=== PATIENT | female | born 1940 | race Caucasian/White ===

== ENCOUNTER 2019-01-18 18:59 | Emergency (ER) | payer MEDICARE, BC ==
[2019-01-18] MEDS ORDERED: Sodium Chloride 0.9% 10 ML Syringe FLUSH PRN (19:20)
--- NOTE | 2019-01-18 19:35 | EDM.PDOC ---
ED HPI GENERAL MEDICAL PROBLEM - General Stated Complaint: THROWING UP Time Seen by Provider: 01/18/19 18:59 Source of Information: Reports: Patient History Limitations: Reports: No Limitations - History of Present Illness INITIAL COMMENTS - FREE TEXT/NARRATIVE: Pt. states that over the past several days, she has been experiencing painful urination, abdominal cramping, and diarrhea. She states that throughout the day today, she has noticed her bowels are moving less, and she has not been passing gas. Denies any chest pain or shortness of breath. No cough. She states that the dysuria has resolved. Pt. states that her last chemo was on 03/09. Her WBC was 0.8, and she was subsequently given a dose of Neulasta on 01/08. Pt. states that a UA was performed last week which was negative. No antibiotic was started. She states that the dysuria has decreased in severity. She denies any chest pain or shortness of breath. No jaw, arm, neck or back pain. No melena, hematochezia, or hematemesis. She states that she feels quite fatigued. She complains of vomting twice and is currently nauseated. Onset: Today Onset Date: 01/18/19 Location: Reports: Abdomen, Generalized Associated Symptoms: Reports: Nausea/Vomiting Lower Abdomen Pain Score (Numeric/FACES): 2 - Related Data Allergies Allergy/AdvReac Type Severity Reaction Status Date / Time hydroxychloroquine Allergy Rash Verified 01/18/19 19:40 [From Plaquenil] Home Meds: Home Meds Calcium Carbonate/Vitamin D3 [Calcium 600 + D3 Softgel] 1 each PO DAILY [History] Furosemide 20 mg PO DAILY 03/08/15 [History] Losartan [Cozaar] 50 mg PO DAILY 03/05/16 [History] Pantoprazole [Protonix] 40 mg PO Q2D 03/05/16 [History] Acetaminophen [Tylenol Arthritis] 650 mg PO Q8H PRN 01/18/19 [History] Apixaban [Eliquis] 5 mg PO DAILY 01/18/19 [History] Biotin 1 mg PO DAILY 01/18/19 [History] Docusate Sodium [Colace] 100 mg PO DAILY PRN 01/18/19 [History] Melatonin 1 mg PO BEDTIME PRN 01/18/19 [History] Multivitamin with Minerals [Multivitamins with Minerals] 1 each PO BEDTIME 01/18 [History] Phenazopyridine [Pyridium] 200 mg PO TID PRN 01/18/19 [History] Prochlorperazine Maleate [Compazine] 10 mg PO QID PRN 01/18/19 [History] atorvaSTATin [Lipitor] 10 mg PO MOWEFR 01/18/19 [History] traMADol [Ultram] 50 mg PO Q6H PRN 01/18/19 [History] Past Medical History Other HEENT History: labyrinthitis. vitreous detachment of both eyes Cardiovascular History: Reports: CAD, Hypertension Other Cardiovascular History: palpitations. disease of tricuspid valve Gastrointestinal History: Reports: GERD, Other (See Below) Other Gastrointestinal History: hx colon polyps. fm hx malignant neoplasm of gi tract Musculoskeletal History: Reports: Fibromyalgia, Osteoarthritis, Other (See Below ) Other Musculoskeletal History: synovitis. tenosynovitis. pain in left wrist. bone disorder. lower leg puncture wound Endocrine/Metabolic History: Reports: Obesity/BMI 30+, Osteopenia, Other (See Below) Other Endocrine/Metabolic History: hyperglycemia - Past Surgical History HEENT Surgical History: Reports: Cataract Surgery, Tonsillectomy GI Surgical History: Reports: Appendectomy, Cholecystectomy, Hernia Repair/Other Musculoskeletal Surgical History: Reports: Carpal Tunnel, Knee Replacement ED ROS GENERAL - Review of Systems Review Of Systems: See Below Constitutional: Reports: Malaise, Fatigue HEENT: Reports: No Symptoms Respiratory: Reports: No Symptoms Cardiovascular: Reports: No Symptoms Endocrine: Reports: No Symptoms GI/Abdominal: Reports: Nausea, Vomiting : Reports: Dysuria, Frequency Musculoskeletal: Reports: No Symptoms Skin: Reports: No Symptoms Neurological: Reports: No Symptoms Psychiatric: Reports: No Symptoms Hematologic/Lymphatic: Reports: No Symptoms Immunologic: Reports: No Symptoms ED EXAM, GENERAL - Physical Exam Exam: See Below Exam Limited By: No Limitations General Appearance: Alert, WD/WN, No Apparent Distress Eye Exam: Bilateral Eye: EOMI, PERRL Throat/Mouth: Normal Inspection, Normal Lips, Normal Teeth, Normal Gums, Normal Oropharynx, Normal Voice, No Airway Compromise Head: Atraumatic, Normocephalic Neck: Normal Inspection, Supple, Non-Tender, Full Range of Motion Respiratory/Chest: No Respiratory Distress, Lungs Clear, Normal Breath Sounds, No Accessory Muscle Use, Chest Non-Tender Cardiovascular: Normal Peripheral Pulses, Regular Rate, Rhythm, No Edema, No Gallop, No JVD, No Murmur, No Rub GI/Abdominal: Soft, No Organomegaly, No Distention, No Mass, Pelvis Stable, Abnormal Bowel Sounds (Female) Exam: Deferred Rectal (Female) Exam: Deferred Back Exam: Normal Inspection, Full Range of Motion Extremities: Normal Inspection, Normal Range of Motion, Non-Tender, No Pedal Edema, Normal Capillary Refill Neurological: Alert, Oriented, CN II-XII Intact, Normal Cognition, Normal Gait, Normal Reflexes, No Motor/Sensory Deficits Psychiatric: Normal Affect, Normal Mood Skin Exam: Warm, Dry, Intact, Normal Color, No Rash Lymphatic: No Adenopathy Course - Vital Signs Last Recorded V/S: Last Vital Signs Temp 36.6 C 01/18/19 21:43 Pulse 83 01/18/19 21:43 Resp 16 01/18/19 21:43 BP 147/91 H 01/18/19 21:43 Pulse Ox 94 L 01/18/19 21:43 - Orders/Labs/Meds Orders: Active Orders 24 hr Category Date Time Status Abdomen Pelvis w Cont [CT] Stat Exams 01/18/19 20:23 Taken Abdomen Series w Chest 1V [CR] Stat Exams 01/18/19 19:21 Taken CULTURE BLOOD [BC] Stat Lab 01/18/19 19:25 Received CULTURE BLOOD [BC] Stat Lab 01/18/19 20:17 Received CULTURE URINE [RM] Stat Lab 01/18/19 19:40 Received Sodium Chloride 0.9% [Saline Flush] Med 01/18/19 19:20 Active 10 ml FLUSH ASDIRECTED PRN Blood Culture x2 Reflex Set [OM.PC] Stat Oth 01/18/19 19:22 Ordered Peripheral IV Insertion Adult [OM.PC] Routine Oth 01/18/19 19:22 Ordered Medication Orders Sodium Chloride (Saline Flush) 10 ml FLUSH ASDIRECTED PRN PRN Reason: Keep Vein Open Last Admin: 01/18/19 19:44 Dose: 10 ml Labs: Laboratory Tests 01/18/19 01/18/19 01/18/19 Range/Units 19:25 19:25 19:25 WBC 7.4 (4.0-10.0) x10^3/uL RBC 3.64 L (4.00-5.50) x10^6/uL Hgb 12.8 (12.0-16.0) g/dL Hct 36.9 (33.0-47.0) % MCV 101.4 H (78.0-93.0) fL MCH 35.2 H (26.0-32.0) pg MCHC 34.7 (32.0-36.0) g/dL RDW Coeff of Jude 13.7 (10.0-15.0) % Plt Count 112 L (130-400) x10^3/uL Neut % (Auto) 87.5 H (50.0-80.0) % Lymph % (Auto) 6.9 L (25.0-50.0) % Snyder % (Auto) 5.4 (2.0-11.0) % Eos % (Auto) 0.1 (0.0-4.0) % Baso % (Auto) 0.1 L (0.2-1.2) % PT 10.7 (10.0-12.8) SEC INR 0.9 L (2.0-3.5) Sodium 144 (69-191) mmol/L Potassium 3.3 L (1.5-9.9) mmol/L Chloride 104 (54-184) mmol/L Carbon Dioxide 25 (21-32) mmol/L Anion Gap 18.3 (10-20) mmol/L BUN 15 (7-18) mg/dL Creatinine 0.8 (0.55-1.02) mg/dL Est Cr Clr Drug Dosing 49.49 mL/min Estimated GFR (MDRD) > 60 Glucose 132 H (74-106) mg/dL Lactic Acid (0.4-2.0) mmol/L Calcium 9.8 (8.5-10.1) mg/dL Corrected Calcium 9.96 (8.5-10.1) mg/dL Phosphorus 3.6 (2.6-4.7) mg/dL Magnesium 1.6 L (1.8-2.4) mg/dL Total Bilirubin 0.5 (0.2-1.0) mg/dL AST 23 (15-37) U/L ALT 23 (14-59) U/L Alkaline Phosphatase 119 H (46-116) U/L C-Reactive Protein 0.5 (<=0.9) mg/dL Total Protein 7.7 (6.4-8.2) g/dL Albumin 3.8 (3.4-5.0) g/dL Globulin 3.9 Albumin/Globulin Ratio 0.97 TSH, Ultra Sensitive 3.126 (0.358-3.74) uIU/mL Urine Color (YELLOW) Urine Appearance (CLEAR) Urine pH (5.0-8.0) Ur Specific [place] Urine Protein (NEGATIVE) mg/dL Urine Glucose (UA) (NEGATIVE) mg/dL Urine Ketones (NEGATIVE) mg/dL Urine Occult Blood (NEGATIVE) Urine Nitrite (NEGATIVE) Urine Bilirubin (NEGATIVE) Urine Urobilinogen (0.2) EU/dL Ur Leukocyte Esterase (NEGATIVE) Urine RBC (NOT SEEN) /HPF Urine WBC (NOT SEEN) /HPF Ur Squamous Epith Cells (NEGATIVE) /HPF Urine Bacteria (NEGATIVE) /HPF Urine Mucus (NEGATIVE) /LPF 01/18/19 01/18/19 Range/Units 19:25 19:40 WBC (4.0-10.0) x10^3/uL RBC (4.00-5.50) x10^6/uL Hgb (12.0-16.0) g/dL Hct (33.0-47.0) % MCV (78.0-93.0) fL MCH (26.0-32.0) pg MCHC (32.0-36.0) g/dL RDW Coeff of Jude (10.0-15.0) % Plt Count (130-400) x10^3/uL Neut % (Auto) (50.0-80.0) % Lymph % (Auto) (25.0-50.0) % Snyder % (Auto) (2.0-11.0) % Eos % (Auto) (0.0-4.0) % Baso % (Auto) (0.2-1.2) % PT (10.0-12.8) SEC INR (2.0-3.5) Sodium (69-191) mmol/L Potassium (1.5-9.9) mmol/L Chloride (54-184) mmol/L Carbon Dioxide (21-32) mmol/L Anion Gap (10-20) mmol/L BUN (7-18) mg/dL Creatinine (0.55-1.02) mg/dL Est Cr Clr Drug Dosing mL/min Estimated GFR (MDRD) Glucose (74-106) mg/dL Lactic Acid 1.6 (0.4-2.0) mmol/L Calcium (8.5-10.1) mg/dL Corrected Calcium (8.5-10.1) mg/dL Phosphorus (2.6-4.7) mg/dL Magnesium (1.8-2.4) mg/dL Total Bilirubin (0.2-1.0) mg/dL AST (15-37) U/L ALT (14-59) U/L Alkaline Phosphatase (46-116) U/L C-Reactive Protein (<=0.9) mg/dL Total Protein (6.4-8.2) g/dL Albumin (3.4-5.0) g/dL Globulin Albumin/Globulin Ratio TSH, Ultra Sensitive (0.358-3.74) uIU/mL Urine Color Yellow (YELLOW) Urine Appearance Slightly cloudy H (CLEAR) Urine pH 6.0 (5.0-8.0) Ur Specific [place] 1.020 Urine Protein 100 H (NEGATIVE) mg/dL Urine Glucose (UA) Negative (NEGATIVE) mg/dL Urine Ketones 40 H (NEGATIVE) mg/dL Urine Occult Blood Trace-intact H (NEGATIVE) Urine Nitrite Negative (NEGATIVE) Urine Bilirubin Small H (NEGATIVE) Urine Urobilinogen 0.2 (0.2) EU/dL Ur Leukocyte Esterase Trace H (NEGATIVE) Urine RBC 0-5 (NOT SEEN) /HPF Urine WBC 10-20 H (NOT SEEN) /HPF Ur Squamous Epith Cells Many H (NEGATIVE) /HPF Urine Bacteria Few H (NEGATIVE) /HPF Urine Mucus Many H (NEGATIVE) /LPF Meds: Medications Generic Name Dose Route Start Last Admin Trade Name Freq PRN Reason Stop Dose Admin Sodium Chloride 10 ml 01/18/19 19:20 01/18/19 19:44 Saline Flush FLUSH 10 ml ASDIRECTED PRN Administration Keep Vein Open Discontinued Medications Generic Name Dose Route Start Last Admin Trade Name Freq PRN Reason Stop Dose Admin Iopamidol 100 ml 01/18/19 20:34 01/18/19 20:51 Isovue-300 (61%) IVPUSH 01/18/19 20:35 100 ml ONETIME ONE Administration Morphine Sulfate 4 mg 01/18/19 21:55 Morphine IVPUSH 01/18/19 21:56 ONETIME ONE Ondansetron HCl 4 mg 01/18/19 19:38 01/18/19 19:44 Zofran IVPUSH 01/18/19 19:39 4 mg ONETIME ONE Administration Pantoprazole Sodium 40 mg 01/18/19 21:56 Protonix Iv IVPUSH 01/18/19 21:57 ONETIME ONE - Radiology Interpretation Free Text/Narrative:: Bowel obstruction with perienteric free fluid noted, arising from ventral hernia. CT scan was forwarded to [place] PACS. Departure - Departure Time of Disposition: 21:56 Disposition: DC/[facility] to [facility] Clinical Impression: Bowel obstruction - Discharge Information Referrals: Melita Bernal MD [Primary Care Provider] - - Problem List Review Problem List Initiated/Reviewed/Updated: Yes - My Orders Last 24 Hours: My Active Orders 01/18/19 19:20 Sodium Chloride 0.9% [Saline Flush] 10 ml FLUSH ASDIRECTED PRN 01/18/19 19:21 Abdomen Series w Chest 1V [CR] Stat 01/18/19 19:22 Blood Culture x2 Reflex Set [OM.PC] Stat Peripheral IV Insertion Adult [OM.PC] Routine 01/18/19 19:25 CULTURE BLOOD [BC] Stat 01/18/19 19:40 CULTURE URINE [RM] Stat 01/18/19 20:17 CULTURE BLOOD [BC] Stat 01/18/19 20:23 Abdomen Pelvis w Cont [CT] Stat - Assessment/Plan Last 24 Hours: My Active Orders 01/18/19 19:20 Sodium Chloride 0.9% [Saline Flush] 10 ml FLUSH ASDIRECTED PRN 01/18/19 19:21 Abdomen Series w Chest 1V [CR] Stat 01/18/19 19:22 Blood Culture x2 Reflex Set [OM.PC] Stat Peripheral IV Insertion Adult [OM.PC] Routine 01/18/19 19:25 CULTURE BLOOD [BC] Stat 01/18/19 19:40 CULTURE URINE [RM] Stat 01/18/19 20:17 CULTURE BLOOD [BC] Stat 01/18/19 20:23 Abdomen Pelvis w Cont [CT] Stat Plan: I spoke with Dr. Escalante, hospitalist at [facility] who accepts patient in transfer. Pt. was given IV zofran and morphine for nausea and pain. Pt. was also given protonix 40mg IV. Pt. will be transported via [facility] ground ambulance to [place]. All questions were answered.
[2019-01-18] MEDS ORDERED: Ondansetron 4 MG/2 ML SDV IVPUSH ONE (19:38)
[2019-01-18 20:20] LABS: ANION GAP 18.3 mmol/L (10-20); CHLORIDE,CL 104 mmol/L (54-184); SODIUM,NA 144 mmol/L (69-191)
[2019-01-18] MEDS ORDERED: Iopamidol 612 MG/ML 100 ML Bottle IVPUSH ONE (20:34)
[2019-01-18 21:44] VITALS: BP 147/91; PULSE 83
[2019-01-18] MEDS ORDERED: Morphine 4 MG/ML Syringe IVPUSH ONE (21:55)
[2019-01-18] MEDS ORDERED: Pantoprazole 40 MG Vial IVPUSH ONE (21:56)
[2019-01-18] MEDS ORDERED: Sodium Chloride 0.9% 1,000 ML IV SCH (22:00)
--- NOTE | 2019-01-19 07:45 | CT ---
[id number] CT/CT Abdomen Pelvis W IV EXAM: CT Abdomen Pelvis W IV CLINICAL DATA: ABDOMINAL PAIN BOWEL DISTENTION COMPARISON: CORRELATION IS MADE WITH THE EARLIER PLAIN FILM FINDINGS: Small bowel obstruction results from an anterior abdominal wall hernia Surgical changes are seen involving the anterior abdominal wall There may be actual 2 sites of anterior abdominal wall herniation. The liver and spleen, kidneys and adrenals, pancreas and aorta are unremarkable. There is apparent thickening of the wall of the duodenal bulb. The gallbladder is not seen An occasional small renal cyst is seen There are atheromatous changes. There is no pelvic mass or adenopathy. There is no evidence of appendicitis The uterus and ovaries have been removed. IMPRESSION: BOWEL OBSTRUCTION REPORT PROVIDED AT TIME OF EXAM Kavon Ovalle MD 01/19/19 0743 Thank you for allowing us to participate in the care of your patient.
--- NOTE | 2019-01-19 07:54 | CR ---
[id number] RAD/RAD Abdomen 3V Exam: RAD Abdomen 3V Clinical Data: ABDOMINAL PAIN DECREASED BREATH SOUNDS CHEMOTHERAPY COMPARISON: CORRELATION IS MADE WITH THE CAT SCAN OBTAINED TODAY FINDINGS: Small distention is seen There is no free air The lungs are clear The cardiomediastinal contour is mildly prominent IMPRESSION: SMALL BOWEL OBSTRUCTION PATTERN Kavon Ovalle MD 01/19/19 0753 Thank you for allowing us to participate in the care of your patient.
== END 2019-01-18 22:38 | disposition short-term general hospital (02) ==
LOC: VM.ED 18:59
DX: K56.609 Unspecified intestinal obstruction, unspecified as to partial versus complete obstruction (principal); I10 Essential (primary) hypertension; I25.10 Atherosclerotic heart disease of native coronary artery without angina pectoris; E66.9 Obesity, unspecified; Z68.36 Body mass index [BMI] 36.0-36.9, adult; Z79.899 Other long term (current) drug therapy
CPT/HCPCS: 36415; 74022; 74177; 80053; 81001; 83605; 83735; 84100; 84443; 85025; 85610; 86140; 87040; 87086; 96374; 96375; 99284-GF; 99285-25; C9113; J2270; J2405; J7030; Q9967

== ENCOUNTER 2020-05-22 20:39 | Emergency (ER) | payer MEDICARE, BC ==
[2020-05-22] MEDS ORDERED: Sodium Chloride 0.9% 10 ML Syringe FLUSH PRN (20:53)
[2020-05-22] MEDS: Morphine 4 MG/ML Syringe IVPUSH ONE ×2 (21:12→23:05)
[2020-05-22] MEDS: Ondansetron 4 MG/2 ML SDV IVPUSH ONE (21:15)
[2020-05-22 21:24] VITALS: BP 163/87; PULSE 82
--- NOTE | 2020-05-22 21:25 | EDM.PDOC ---
ED HPI GENERAL MEDICAL PROBLEM - General Chief Complaint: Abdominal Pain Stated Complaint: Abdominal Pain Time Seen by Provider: 05/22/20 20:50 Source of Information: Reports: Patient History Limitations: Reports: No Limitations - History of Present Illness INITIAL COMMENTS - FREE TEXT/NARRATIVE: presents to ER with complaints of severe, intermittent RUQ abdominal pain. She states that the discomfort started last evening but seemed to resolve. She states that the discomfort started again tonight about 30 min. prior to coming to the ER. She states that she had a normal BM this AM. Denies any hematochezia or melena. She states that the discomfort is sharp in nature. No nausea or vomiting today. Denies any fever or chills. No substernal chest, back, neck, arm, or jaw pain. She has not been short of breath. Denies any dark colored urine/sb colored stool. Pt. has a history of previous incarcerated hernia with subsequent ischemic bowel in 04/2019. She underwent emergency surgery for this. She also underwent cholecystectomy when she was about 22. She is also absent her appendix. Pt. has a history of stage IIIC1 endometrial CA and underwent a total hysterectomy, sentinel node excision, and extensive adhesiolysis in 2018. She underwent radiation and chemo as well at that time, and actually had follow-up for this with oncology last week, with plan to continue surveillance of the disease at this point. She also has a history of prior DVT and was previously anticoagulated but has been off of any anticoagulants for some time (over a year). She denies any cough, chest congestion, or sore throat. She states that she has been a bit congested for the past several days. Onset: Today Onset Date: 05/22/20 Quality: Reports: Sharp Right Upper Quadrant Pain Score (Numeric/FACES): 9 - Related Data Allergies Allergy/AdvReac Type Severity Reaction Status Date / Time hydroxychloroquine Allergy Rash Verified 05/22/20 20:50 [From Plaquenil] Home Meds: Home Meds Calcium Carbonate/Vitamin D3 [Calcium 600 + D3 Softgel] 1 each PO DAILY 03/08/15 [History] Furosemide 20 mg PO DAILY 03/08/15 [History] Losartan [Cozaar] 50 mg PO DAILY 03/05/16 [History] Pantoprazole [Protonix] 40 mg PO Q2D 03/05/16 [History] Acetaminophen [Tylenol Arthritis] 650 mg PO Q8H PRN 01/18/19 [History] Apixaban [Eliquis] 5 mg PO DAILY 01/18/19 [History] Biotin 1 mg PO DAILY 01/18/19 [History] Docusate Sodium [Colace] 100 mg PO DAILY PRN 01/18/19 [History] Melatonin 1 mg PO BEDTIME PRN 01/18/19 [History] Multivitamin with Minerals [Multivitamins with Minerals] 1 each PO BEDTIME 01/18/19 [History] Phenazopyridine [Pyridium] 200 mg PO TID PRN 01/18/19 [History] Prochlorperazine Maleate [Compazine] 10 mg PO QID PRN 01/18/19 [History] atorvaSTATin [Lipitor] 10 mg PO MOWEFR 01/18/19 [History] traMADol [Ultram] 50 mg PO Q6H PRN 01/18/19 [History] Past Medical History Other HEENT History: labyrinthitis. vitreous detachment of both eyes Cardiovascular History: Reports: CAD, Hypertension Other Cardiovascular History: palpitations. disease of tricuspid valve Gastrointestinal History: Reports: GERD, Other (See Below) Other Gastrointestinal History: hx colon polyps. fm hx malignant neoplasm of gi tract Musculoskeletal History: Reports: Fibromyalgia, Osteoarthritis, Other (See Below) Other Musculoskeletal History: synovitis. tenosynovitis. pain in left wrist. bone disorder. lower leg puncture wound Endocrine/Metabolic History: Reports: Obesity/BMI 30+, Osteopenia, Other (See Below) Other Endocrine/Metabolic History: hyperglycemia Oncologic (Cancer) History: Reports: Other (See Below) Other Oncologic History: endometrium - Past Surgical History HEENT Surgical History: Reports: Cataract Surgery, Tonsillectomy GI Surgical History: Reports: Appendectomy, Cholecystectomy, Hernia Repair/Other Musculoskeletal Surgical History: Reports: Carpal Tunnel, Knee Replacement ED ROS GENERAL - Review of Systems Review Of Systems: See Below Constitutional: Reports: No Symptoms. Denies: Fever, Chills, Malaise, Weakness, Fatigue, Night Sweats, Decreased Appetite, Weight Loss HEENT: Reports: No Symptoms Respiratory: Reports: No Symptoms Cardiovascular: Reports: No Symptoms Endocrine: Reports: No Symptoms GI/Abdominal: Reports: Abdominal Pain. Denies: Black Stool, Bloody Stool, Constipation, Diarrhea, Distension, Hematemesis, Hematochezia, Melena, Mucous in Stool, Nausea, Vomiting : Reports: No Symptoms Musculoskeletal: Reports: No Symptoms Skin: Reports: No Symptoms Neurological: Reports: No Symptoms Psychiatric: Reports: No Symptoms Hematologic/Lymphatic: Reports: No Symptoms Immunologic: Reports: No Symptoms ED EXAM, GENERAL - Physical Exam Exam: See Below Exam Limited By: No Limitations General Appearance: Alert, WD/WN, No Apparent Distress Throat/Mouth: Normal Inspection, Normal Lips, Normal Oropharynx, Normal Voice, No Airway Compromise Head: Atraumatic, Normocephalic Respiratory/Chest: No Respiratory Distress, Lungs Clear, Normal Breath Sounds, No Accessory Muscle Use, Chest Non-Tender Cardiovascular: Normal Peripheral Pulses, Regular Rate, Rhythm, No Edema, No JVD GI/Abdominal: Soft, No Distention, Pelvis Stable, Guarding, Tender (RUQ, with guarding). No: Rigid, Mass, Hepatomegaly (Female) Exam: Deferred Rectal (Female) Exam: Deferred Extremities: Normal Inspection, Normal Range of Motion, Non-Tender, No Pedal Edema, Normal Capillary Refill Neurological: Alert, Oriented, CN II-XII Intact, Normal Cognition, Normal Gait, Normal Reflexes, No Motor/Sensory Deficits Psychiatric: Normal Affect, Normal Mood Skin Exam: Warm, Dry, Intact, Normal Color, No Rash Lymphatic: No Adenopathy #1 Interpretation Rhythm: NSR [place]: Normal P-Wave: Present QRS: Normal ST-T: Normal QT: Normal Course - Vital Signs Last Recorded V/S: Last Vital Signs Temp 36.3 C 05/22/20 20:52 Pulse 82 05/22/20 20:52 Resp 16 05/22/20 20:52 BP 163/87 H 05/22/20 20:52 Pulse Ox 96 05/22/20 20:52 - Orders/Labs/Meds Orders: Active Orders 24 hr Category Date Time Status EKG Documentation Completion [RC] STAT Care 05/22/20 20:54 Active Abdomen Pelvis w Cont [CT] Stat Exams 05/22/20 20:53 Ordered Abdomen Pelvis w Cont [CT] Stat Exams 05/22/20 20:53 Taken CULTURE URINE [RM] Stat Lab 05/22/20 22:07 Received Sodium Chloride 0.9% [Saline Flush] Med 05/22/20 20:53 Active 10 ml FLUSH ASDIRECTED PRN Peripheral IV Insertion Adult [OM.PC] Routine Oth 05/22/20 20:53 Ordered Medication Orders Sodium Chloride (Saline Flush) 10 ml FLUSH ASDIRECTED PRN PRN Reason: Keep Vein Open Labs: Laboratory Tests 05/22/20 05/22/20 05/22/20 Range/Units 21:10 21:10 21:10 WBC 6.6 (4.0-10.0) x10^3/uL RBC 4.02 (4.00-5.50) x10^6/uL Hgb 13.4 (12.0-16.0) g/dL Hct 39.0 (33.0-47.0) % MCV 97.0 H D (78.0-93.0) fL MCH 33.3 H (26.0-32.0) pg MCHC 34.4 (32.0-36.0) g/dL RDW Coeff of Jdue 13.1 (10.0-15.0) % Plt Count 173 (130-400) x10^3/uL Neut % (Auto) 70.1 (50.0-80.0) % Lymph % (Auto) 17.7 L (25.0-50.0) % Forest % (Auto) 10.0 (2.0-11.0) % Eos % (Auto) 1.7 (0.0-4.0) % Baso % (Auto) 0.5 (0.2-1.2) % PT 10.2 (9.5-12.3) SEC INR 0.9 L (2.0-3.5) Sodium 141 (136-145) mmol/L Potassium 3.3 L (3.5-5.1) mmol/L Chloride 102 (98-107) mmol/L Carbon Dioxide 29 (21-32) mmol/L Anion Gap 13.3 (5-15) mmol/L BUN 20 H (7-18) mg/dL Creatinine 1.0 (0.55-1.02) mg/dL Est Cr Clr Drug Dosing 38.97 mL/min Estimated GFR (MDRD) 54 Glucose 117 H (74-106) mg/dL Calcium 9.0 (8.5-10.1) mg/dL Corrected Calcium 9.48 (8.5-10.1) mg/dL Magnesium 1.8 (1.8-2.4) mg/dL Total Bilirubin 0.5 (0.2-1.0) mg/dL AST 15 (15-37) U/L ALT 21 (14-59) U/L Alkaline Phosphatase 78 (46-116) U/L Troponin I < 0.017 (<=0.056) ng/mL C-Reactive Protein 0.8 (<=0.9) mg/dL Total Protein 6.8 (6.4-8.2) g/dL Albumin 3.4 (3.4-5.0) g/dL Globulin 3.4 Albumin/Globulin Ratio 1.00 Amylase 59 (25-115) U/L Lipase 233 (73-393) U/L Urine Color (YELLOW) Urine Appearance (CLEAR) Urine pH (5.0-8.0) Ur Specific [place] Urine Protein (NEGATIVE) mg/dL Urine Glucose (UA) (NEGATIVE) mg/dL Urine Ketones (NEGATIVE) mg/dL Urine Occult Blood (NEGATIVE) Urine Nitrite (NEGATIVE) Urine Bilirubin (NEGATIVE) Urine Urobilinogen (0.2) EU/dL Ur Leukocyte Esterase (NEGATIVE) Urine RBC (NOT SEEN) /HPF Urine WBC (NOT SEEN) /HPF Ur Squamous Epith Cells (NEGATIVE) /HPF Urine Bacteria (NEGATIVE) /HPF Urine Mucus (NEGATIVE) /LPF 05/22/20 Range/Units 22:07 WBC (4.0-10.0) x10^3/uL RBC (4.00-5.50) x10^6/uL Hgb (12.0-16.0) g/dL Hct (33.0-47.0) % MCV (78.0-93.0) fL MCH (26.0-32.0) pg MCHC (32.0-36.0) g/dL RDW Coeff of Jude (10.0-15.0) % Plt Count (130-400) x10^3/uL Neut % (Auto) (50.0-80.0) % Lymph % (Auto) (25.0-50.0) % Forest % (Auto) (2.0-11.0) % Eos % (Auto) (0.0-4.0) % Baso % (Auto) (0.2-1.2) % PT (9.5-12.3) SEC INR (2.0-3.5) Sodium (136-145) mmol/L Potassium (3.5-5.1) mmol/L Chloride (98-107) mmol/L Carbon Dioxide (21-32) mmol/L Anion Gap (5-15) mmol/L BUN (7-18) mg/dL Creatinine (0.55-1.02) mg/dL Est Cr Clr Drug Dosing mL/min Estimated GFR (MDRD) Glucose (74-106) mg/dL Calcium (8.5-10.1) mg/dL Corrected Calcium (8.5-10.1) mg/dL Magnesium (1.8-2.4) mg/dL Total Bilirubin (0.2-1.0) mg/dL AST (15-37) U/L ALT (14-59) U/L Alkaline Phosphatase (46-116) U/L Troponin I (<=0.056) ng/mL C-Reactive Protein (<=0.9) mg/dL Total Protein (6.4-8.2) g/dL Albumin (3.4-5.0) g/dL Globulin Albumin/Globulin Ratio Amylase (25-115) U/L Lipase (73-393) U/L Urine Color Yellow (YELLOW) Urine Appearance Clear (CLEAR) Urine pH 6.5 (5.0-8.0) Ur Specific [place] 1.010 Urine Protein Negative (NEGATIVE) mg/dL Urine Glucose (UA) Negative (NEGATIVE) mg/dL Urine Ketones Negative (NEGATIVE) mg/dL Urine Occult Blood Negative (NEGATIVE) Urine Nitrite Negative (NEGATIVE) Urine Bilirubin Negative (NEGATIVE) Urine Urobilinogen 0.2 (0.2) EU/dL Ur Leukocyte Esterase Small H (NEGATIVE) Urine RBC 0-5 (NOT SEEN) /HPF Urine WBC 5-10 H (NOT SEEN) /HPF Ur Squamous Epith Cells Rare (NEGATIVE) /HPF Urine Bacteria Rare (NEGATIVE) /HPF Urine Mucus Rare H (NEGATIVE) /LPF Meds: Medications Generic Name Dose Route Start Last Admin Trade Name Freq PRN Reason Stop Dose Admin Sodium Chloride 10 ml 05/22/20 20:53 Saline Flush FLUSH ASDIRECTED PRN Keep Vein Open Discontinued Medications Generic Name Dose Route Start Last Admin Trade Name Freq PRN Reason Stop Dose Admin Iopamidol 100 ml 05/22/20 21:47 05/22/20 22:32 Isovue-300 (61%) IVPUSH 05/22/20 21:48 100 ml ONETIME ONE Administration Morphine Sulfate 4 mg 05/22/20 20:56 05/22/20 21:12 Morphine IVPUSH 05/22/20 20:57 4 mg ONETIME ONE Administration Morphine Sulfate 4 mg 05/22/20 23:00 05/22/20 23:05 Morphine IVPUSH 05/22/20 23:01 4 mg ONETIME ONE Administration Ondansetron HCl 4 mg 05/22/20 20:56 05/22/20 21:15 Zofran IVPUSH 05/22/20 20:57 4 mg ONETIME ONE Administration Trimethoprim/Sulfamethoxazole 1 packet 05/22/20 23:01 05/22/20 23:05 Take Home: Sulfameth/Trimet 800-160mg, 2 Pack PO 05/22/20 23:02 1 packet ONETIME ONE Administration - Radiology Interpretation Free Text/Narrative:: No bowel obstruction. No diverticulitis. Moderate stool in colon. No abdominal aortic aneurysm. Possible small seroma. Bilateral inguinal hernia (no pain in this area). Small sepigelian hernia no the R with no obstruction. Departure - Departure Time of Disposition: 23:14 Disposition: Home, Self-Care 01 Clinical Impression: UTI (urinary tract infection), Constipation - Discharge Information Instructions: Constipation, Adult, Urinary Tract Infection, Adult Referrals: Melita Bernal MD [Primary Care Provider] - Forms: ED Department Discharge Additional Instructions: Bactrim DS 1 twice daily for 5 days Most likely cause of your discomfort is constipation, as the discomfort comes and goes. Start Miralax 17gm once daily and increase consumption of water. You can also use milk of mag if you are having hard stools. There was evidence of hernias in your lower abdomen and where you had your surgery. There was no evidence of infection, rupture, or bowel obstruction and do not appear to be associated with the discomfort. Recheck in clinic in 10-14 days, sooner if not gradually improving. Sepsis Event Note (ED) - Focused Exam Vital Signs: Vital Signs Temp Pulse Resp BP Pulse Ox 05/22/20 20:52 36.3 C 82 16 163/87 H 96 - Problem List Review Problem List Initiated/Reviewed/Updated: Yes - My Orders Last 24 Hours: My Active Orders 05/22/20 20:53 Abdomen Pelvis w Cont [CT] Stat Abdomen Pelvis w Cont [CT] Stat Sodium Chloride 0.9% [Saline Flush] 10 ml FLUSH ASDIRECTED PRN Peripheral IV Insertion Adult [OM.PC] Routine 05/22/20 20:54 EKG Documentation Completion [RC] STAT 05/22/20 22:07 CULTURE URINE [RM] Stat - Assessment/Plan Last 24 Hours: My Active Orders 05/22/20 20:53 Abdomen Pelvis w Cont [CT] Stat Abdomen Pelvis w Cont [CT] Stat Sodium Chloride 0.9% [Saline Flush] 10 ml FLUSH ASDIRECTED PRN Peripheral IV Insertion Adult [OM.PC] Routine 05/22/20 20:54 EKG Documentation Completion [RC] STAT 05/22/20 22:07 CULTURE URINE [RM] Stat Plan: Bactrim DS 1 twice daily for 5 days Most likely cause of your discomfort is constipation, as the discomfort comes and goes. Start Miralax 17gm once daily and increase consumption of water. You can also use milk of mag if you are having hard stools. There was evidence of hernias in your lower abdomen and where you had your surgery. There was no evidence of infection, rupture, or bowel obstruction and do not appear to be associated with the discomfort. Recheck in clinic in 10-14 days, sooner if not gradually improving.
[2020-05-22 21:45] LABS: CHLORIDE,CL 102 mmol/L (98-107); SODIUM,NA 141 mmol/L (136-145)
[2020-05-22 21:50] LABS: ANION GAP 13.3 mmol/L (5-15)
[2020-05-22] MEDS: Iopamidol 612 MG/ML 100 ML Bottle IVPUSH ONE (22:32)
[2020-05-22] MEDS: Take Home: Sulfamethoxazole/Trimethoprim 800-160 MG Tab, 2 Tab Pack PO ONE (23:05)
--- NOTE | 2020-05-23 08:11 | CT ---
[id number] CT/CT Abdomen Pelvis W IV EXAM: CT Abdomen Pelvis W IV CLINICAL DATA: RUQ ABDOMEN PAIN, HISTORY OF ISCHEMIC BOWEL COMPARISON STUDY: February 18, 2020. FINDINGS: Dependent atelectasis at the lung bases bilaterally. Coronary artery disease. The liver, spleen, pancreas, adrenal glands are unremarkable. The gallbladder surgically absent. Biliary ductal dilatation likely secondary to postcholecystectomy state. Bilateral renal cysts. No hydronephrosis or hydroureter. No radiodense renal calculi are identified. No bowel obstruction or inflammation. Colonic diverticulosis without evidence of acute diverticulitis. Moderate to large amount of retained stool within the colon. No lymphadenopathy, free fluid, or pneumoperitoneum. Stable fluid collection within the superficial soft tissues of the anterior abdominal wall measuring up to 4.7 cm. Bilateral inguinal hernias. The left inguinal hernia contains unobstructed colon. The right inguinal hernia contains fat. Scattered changes of spondylosis the spine. No fracture or osseous lesion. IMPRESSION: 1. Stable fluid collection within the superficial soft tissues of the anterior abdominal wall measuring up to 4.7 cm. 2. Bilateral inguinal hernias. The left inguinal hernia contains unobstructed colon. 3. Colonic diverticulosis without evidence of acute diverticulitis. 4. Moderate to large amount of retained stool within the colon. Correlate for constipation. John Allen DO 05/23/20 0809 Thank you for allowing us to participate in the care of your patient.
== END 2020-05-22 23:20 | disposition home or self-care (01) ==
LOC: VM.ED 20:39
DX: N39.0 Urinary tract infection, site not specified (principal); K59.00 Constipation, unspecified; E66.9 Obesity, unspecified; I10 Essential (primary) hypertension; I25.10 Atherosclerotic heart disease of native coronary artery without angina pectoris; K21.9 Gastro-esophageal reflux disease without esophagitis; Z68.33 Body mass index [BMI] 33.0-33.9, adult; Z88.8 Allergy status to other drugs, medicaments and biological substances; Z79.01 Long term (current) use of anticoagulants; Z79.899 Other long term (current) drug therapy
CPT/HCPCS: 74177; 80053; 81001; 82150; 83690; 83735; 84484; 85025; 85610; 86140; 87086; 93005; 93010; 96374; 96375; 96376; 99284; 99284-25; A9270-GY; J2270; J2405; Q9967

== ENCOUNTER 2020-10-20 06:57 | Day surgery (SDC) | payer MEDICARE, BC ==
[2020-10-20] MEDS: Lactated Ringers 1,000 ML IV SCH (07:21)
[2020-10-20] MEDS ORDERED: Midazolam 1 MG/ML 2 ML SDV ONE (07:57)
[2020-10-20] MEDS ORDERED: Propofol 200 MG/20 ML SDV ONE (07:57)
[2020-10-20] MEDS ORDERED: fentaNYL 100 MCG/2 ML SDV ONE (07:57)
[2020-10-20 09:04] VITALS: BP 166/82; PULSE 59
--- NOTE | 2020-10-20 13:47 | OR ---
DATE OF SURGERY: 10/20/2020. REFERRING PROVIDERS: Melita Bernal MD and Joanna Stokes at [facility]. PRE-OPERATIVE DIAGNOSES: 1. History of colon polyps. Last colonoscopy was 02/2016 and revealed some moderate diverticulosis and moderate hemorrhoids. 2. Positive family history of colon cancer in mother was diagnosed in her 60s. POST-OPERATIVE DIAGNOSES: 1. 3 mm polyp at 65 cm, removed using cold forceps in multiple bites. 2. Moderate sigmoid diverticulosis. 3. [id number] hemorrhoids, not acutely inflamed. 4. Normal-appearing terminal ileum. PROCEDURE: Colonoscopy with polypectomy x1 using cold forceps. SURGEON: Jethro Hanks M.D. ANESTHESIA: Monitored anesthesia care. BOWEL PREP: Good. Carmelina is a 79-year-old female who was brought to the endoscopy suite after discussing risks and benefits of the procedure. Informed consent was obtained for conscious sedation and colonoscopy with or without biopsy and/or polypectomy. We also discussed possibility of missed lesions. Pre-procedure exam was unremarkable. IV, oxygen, and monitors were placed. The patient was placed in the left lateral decubitus position. Sedation was administered and a digital rectal exam was performed and unremarkable except for some moderate external hemorrhoidal skin tags, not acutely inflamed. Colonoscope was passed into the rectum and slowly advanced all the way to the cecum. Cecum was viewed and photographed. Ileocecal valve was intubated and terminal ileum was normal in appearance. The colonoscope was slowly withdrawn and the mucosa was closed observed in a direct circumferential manner. The ascending colon was unremarkable. The transverse colon revealed 3 mm polyp at 65 cm, removed using cold forceps. The descending colon was unremarkable. The sigmoid colon revealed some moderate diverticulosis. Retroflexion was performed and rectal mucosa was remarkable for [id number] hemorrhoids, not acutely inflamed. Scope was removed. The patient tolerated the procedure well. The patient was monitored until that baseline status. Discharge instructions were reviewed and the patient was discharged in good condition. COMPLICATIONS: None. TOTAL TIME: 19 minutes. ESTIMATED BLOOD LOSS: About 1 mL. RECOMMENDATIONS/FOLLOW-UP: We will await results of path report to determine ideal followup interval. We will have the patient hold her aspirin for 3 days to limit any chance of bleeding from polypectomy site. I would like to kindly thank Dr. Bernal and Joanna Stokes for this referral. DMB: 10/20/2020 09:58:32 MODL: 10/20/2020 10:28:26 /[id number]
== END 2020-10-20 09:40 | disposition home or self-care (01) ==
LOC: VM.SDS 06:57
PROVIDERS: ATTEND Family Medicine
DX: Z12.11 Encounter for screening for malignant neoplasm of colon (principal); D12.6 Benign neoplasm of colon, unspecified; K64.4 Residual hemorrhoidal skin tags; K57.30 Diverticulosis of large intestine without perforation or abscess without bleeding; I10 Essential (primary) hypertension; E66.09 Other obesity due to excess calories; Z68.33 Body mass index [BMI] 33.0-33.9, adult; M19.90 Unspecified osteoarthritis, unspecified site; C55 Malignant neoplasm of uterus, part unspecified; C54.1 Malignant neoplasm of endometrium; Z86.010 Personal history of colon polyps; Z80.0 Family history of malignant neoplasm of digestive organs; Z79.899 Other long term (current) drug therapy
CPT/HCPCS: 00811; 45380; J2250; J2704; J3010; J7120; 88305